=== PATIENT | male | born 1945 | race Hispanic/Latino ===

== ENCOUNTER 2022-09-21 22:42 | Observation (INO) | payer MEDICARE, OTHER ==
[2022-09-22 00:04] VITALS: BMI 36.3
[2022-09-22] MEDS ORDERED: Nitroglycerin 0.4 MG TAB (25 Tab Bottle) SL PRN (00:55)
[2022-09-22] MEDS ORDERED: Sodium Chloride 0.9% 1,000 ML IV SCH (01:00)
[2022-09-22] MEDS ORDERED: Rosuvastatin 20 MG TAB PO SCH ×2 (01:00→21:00)
[2022-09-22] MEDS ORDERED: Potassium Chloride 20 MEQ TAB PO SCH (01:00)
[2022-09-22] MEDS: Nitroglycerin 2% Ointment 1 INCH/1 GM Packet TOP SCH ×2 (01:36→09:58)
[2022-09-22 01:48] LABS: Magnesium 2.1 mg/dL (1.6-2.6)
[2022-09-22 01:55] LABS: Troponin I Less than 0.010 ng/mL (< 0.028)
[2022-09-22 06:06] LABS: #Eosinphils 0.1 10x3/uL (0.0-0.5); #Monocytes 0.8 10x3/uL (0.0-1.1); #Neutrophils 4.8 10x3/uL (1.5-8.4); %Basophils 0.5 % (0.0-2.0); %Eosinophils 1.3 % (0.0-6.0); %Neutrophils 63.1 % (40.0-75.0); Hemoglobin 13.4 g/dL (13.5-17.5); Mean Corpuscular HGB CONC 34.9 g/dL (32.0-36.0); Mean Corpuscular Hemoglobin 30.9 pg (27.0-33.0); Mean Corpuscular Volume 88.7 fl (81.2-95.1); Mean Platelet Volume 10.5 fl (7.4-10.4); Platelet Count 213 10x3/uL (150-450); RBC Distribution Width 12.1 % (11.5-14.5); Red Blood Cell (RBC) Count 4.33 10x6/uL (4.32-5.72); White Blood Cell (WBC) Count 7.6 10x3/uL (3.5-10.5)
[2022-09-22 06:16] LABS: Anion Gap 12 mmol/L (10-20); BUN (Urea Nitrogen) 12 mg/dL (8.4-25.7); Calc. Creatinine Clearance 117 mL/min (70-130); Calcium 8.6 mg/dL (7.8-10.44); Carbon Dioxide 22 mmol/L (23-31); Cardiac Risk 2.8 (Less than 4.5); Chloride 112 mmol/L (98-107); Cholesterol 120 mg/dl (< 200 Desired); Estimated GFR 93; Glucose 101 mg/dL (83-110); HDL Cholesterol 43 mg/dL (>60 Neg Risk); LDL Cholesterol, Calculated 56 mg/dL; Potassium 4.7 mmol/L (3.5-5.1); Sodium 141 mmol/L (136-145); Triglycerides 104 mg/dL (Less than 150)
[2022-09-22 06:24] LABS: Troponin I 0.011 ng/mL (< 0.028)
[2022-09-22] MEDS ORDERED: Aspirin Chewable 81 MG TAB PO SCH (09:00)
[2022-09-22] MEDS ORDERED: Gabapentin 300 MG CAP PO SCH (09:00)
[2022-09-22] MEDS ORDERED: Losartan 25 MG TAB PO SCH (09:00)
[2022-09-22] MEDS ORDERED: hydrALAZINE 20 MG/ML VIAL SLOW IVP PRN (09:28)
[2022-09-22 10:28] LABS: Troponin I Less than 0.010 ng/mL (< 0.028)
[2022-09-22 11:55] VITALS: BP 149/67; TEMP 98
[2022-09-22 13:22] LABS: Hemoglobin A1c 5.6 % (4.0-6.0)
[2022-09-22] MEDS ORDERED: Carvedilol 6.25 MG TAB PO SCH (17:00)
== END 2022-09-22 13:20 | disposition home or self-care (01) ==
LOC: CSHTELE 23:52
PROVIDERS: ADMIT Family Medicine; ATTEND Nurse Practitioner Acute Care
DX: R07.2 Precordial pain (principal); I10 Essential (primary) hypertension; E78.5 Hyperlipidemia, unspecified; K21.9 Gastro-esophageal reflux disease without esophagitis; E66.9 Obesity, unspecified; Z68.36 Body mass index [BMI] 36.0-36.9, adult; Z20.822 Contact with and (suspected) exposure to COVID-19; Z79.82 Long term (current) use of aspirin; Z79.899 Other long term (current) drug therapy
CPT/HCPCS: 80048; 80061; 83036; 83735; 84484 ×2; 85025; 93005; 93306; 96372; G0378; U0003; U0005; 36415; 93010; J1650; J7050

== ENCOUNTER 2023-10-17 12:46 | Outpatient (CLI) | payer OTHER | END 2023-10-17 12:47 | disposition home or self-care (01) | LOC: CSHULT 12:46 | PROVIDERS: ATTEND Chiropractor | DX: I25.9 Chronic ischemic heart disease, unspecified (principal); I35.1 Nonrheumatic aortic (valve) insufficiency | CPT/HCPCS: 93306 ==